=== PATIENT | female | born 1985 | race African-American/Black ===

== ENCOUNTER 2019-03-26 05:08 | Day surgery (SDC) | payer OTHER ==
[2019-03-23 08:17] VITALS: BMI 39.2
[2019-03-26] MEDS ORDERED: BUPIVACAINE HCL/PF 0.5% (5 MG/ML) 30 ML VIAL IJ ONE ×2 (07:16→09:59)
[2019-03-26] MEDS ORDERED: MIDAZOLAM HCL 2 MG/2 ML SINGLE DOSE VIAL ONE (07:34)
[2019-03-26] MEDS ORDERED: ROCURONIUM BROMIDE 50 MG/5 ML SYRINGE ONE ×2 (07:34→09:00)
[2019-03-26] MEDS ORDERED: LIDOCAINE HCL/PF 2% SDV 5ML VIAL ONE (07:34)
[2019-03-26] MEDS ORDERED: PROPOFOL 20 ML ONE ×3 (07:34→08:04)
[2019-03-26] MEDS ORDERED: fentaNYL CITRATE 250 MCG/5 ML VIAL ONE (08:28)
[2019-03-26] MEDS ORDERED: ceFAZolin SODIUM 1 GM VIAL ONE (08:30)
[2019-03-26] MEDS ORDERED: ceFAZolin 2 GRAM PREMIX BAG IVPB ONE (08:32)
[2019-03-26] MEDS ORDERED: DEXAMETHASONE SOD PHOSPHATE 4 MG/1 ML VIAL ONE (08:42)
[2019-03-26] MEDS ORDERED: GLYCOPYRROLATE 0.2 MG/1 ML VIAL ONE (09:28)
[2019-03-26] MEDS ORDERED: NEOSTIGMINE METHYLSULFATE 0.5 MG/ML - 10 ML MDV ONE (09:28)
[2019-03-26] MEDS ORDERED: oxyCODONE HCL 5 MG TABLET PO PRN (10:19)
[2019-03-26] MEDS ORDERED: ONDANSETRON 4 MG/2 ML VIAL IVPUSH PRN (10:19)
[2019-03-26] MEDS ORDERED: IBUPROFEN 800 MG/8 ML IJ IVPB PRN (10:19)
[2019-03-26] MEDS ORDERED: LACTATED RINGERS SOLUTION 1,000 ML IV SCH (10:30)
[2019-03-26 11:23] LABS: BASO % 0.6 % (0-2.0); EOS % 0.2 % (0-4.5); HEMATOCRIT 37.5 % (32.4-45.2); HEMOGLOBIN 12.8 GM/dL (10.7-15.3); LYMPH % 17.8 % (8-40); MCH 31.6 pg (25.7-33.7); MEAN CELL VOLUME 92.8 fl (80-96); MEAN PLT VOLUME 7.8 fl (7.5-11.1); MONO % 2.1 % (3.8-10.2); NEUT % 79.3 % (42.8-82.8); PLATELET COUNT 309 K/MM3 (134-434); RBC 4.04 M/mm3 (3.60-5.2); RDW 13.2 % (11.6-15.6); WHITE BLOOD COUNT 8.5 K/mm3 (4.0-10.0)
[2019-03-26 13:20] VITALS: BP 125/74; PULSE 64; TEMP 97.7
--- NOTE | 2019-03-26 14:45 | OP ---
DATE OF OPERATION: 03/26/2019 PREOPERATIVE DIAGNOSIS: Right ovarian cyst. OPERATION: Laparoscopic right ovarian cystectomy and left ovarian cystectomy. SURGEON: Akosua Barba MD ESTIMATING ENGINEER: PATEL Albert. unavailable. ANESTHESIA: General. ANESTHESIOLOGIST: Brenda Marquis MD FINDINGS: Clear 10-cm right ovarian cyst and 5-cm dermoid cyst. PROCEDURE: Patient was taken to the operating room, placed in dorsal lithotomy position. Prepped and draped in the usual sterile fashion. Time-out was performed in accordance with hospital regulation. Anderson catheter was placed into the bladder. Attention was then drawn to the umbilicus where an 8-mm umbilical incision was made. Veress needle was inserted into the cavity. Approximately 3-4 L of CO2 was insufflated in the cavity. Veress needle was then removed, and an 8-mm trocar was then inserted. Laparoscope and camera were attached. Visualization revealed a 10-cm right ovarian cyst and a left -cm dermoid cyst. Two trocars were placed on the left, 1 in the upper abdomen, and other one upper 10 cm parallel to the umbilical incision. Two trocars were then placed on the right side 10 cm apart. Trocars were inserted under direct visualization. The da Paula robot was then side docked to the patient's arm. Trocars were then inserted onto the da Paula robot. Instruments were then placed. [place] was placed on the left. Endo Chela and fenestrated bipolar was placed on the right under visualization. Fenestrated bipolar was used to grasp the right ovarian cyst, which was 10 cm. Cystoscopy was performed using grasper, and [place] was then used to remove the right ovarian cyst approximately 10 cm. Clear fluid was seen coming out of the cyst. Coagulation and cutting of the ovary was then done. The cyst was removed in 2 parts. Attention was then drawn to the left side where cystoscopy was performed using Endo scissors. Left cystoscopy was then performed. Dermoid cyst was then removed and submitted to Pathology using blunt and sharp technique. Coagulation of the left ovary was then done. Hemostasis was achieved. All instruments were then removed. Ramesh-Zully was used on the 20-mm port, and the fascia was then closed. The incisions were then closed using 4-0 Biosyn suture in subcuticular fashion. Wounds were washed and dressed. Estimated blood loss was about 150 mL. Lauren [id number]
--- NOTE | 2019-03-30 19:32 | PATH ---
Surgical Pathology Report Patient Name: DANNY WRIGHT [facility]. Rec. #: [id number] /Age/Gender: 1985 (Age: 33) / F Account: [id number] Location: AMBULATORY SURG Taken: 03/26/2019 Received: 03/26/2019 Reported: 03/30/2019 Physicians: Akosua Barba M.D. Specimen(s) Received A: RIGHT OVARIAN B: LEFT DERMOID CYST Clinical History Ovarian cyst right Final Diagnosis A. OVARIAN CYST, RIGHT, EXCISION: OVARIAN TISSUE WITH CONCURRENT STRUMA OVARII AND SEROUS CYSTADENOMA. Comment: Portions of ovarian tissue with cystic wall lined by benign cuboid serous type epithelium. Focal benign appearing thyroid tissue with colloid is seen in the cyst wall. Findings are consistent with the above diagnosis. B. LEFT DERMOID CYST, REMOVAL: MATURE CYSTIC TERATOMA. Electronically Signed Heidi Nguyen M.D. Gross Description A. Received in formalin labeled "ovarian cyst right," are 2 ruiz-pink portions of a disrupted cyst wall measuring 5.0 x 3.5 x 0.2 cm and 5.5 x 3.1 x 0.2 cm. Sectioning reveals focal mucinous material. No normal ovarian parenchyma is identified. Cable Splicer Apprentice sections are submitted in 4 cassettes. B. Received in formalin labeled "left dermoid cyst," is a 4.3 x 3.5 x 1.0 cm ruiz-pink, intact cyst. The outer surface is smooth. The cyst lumen contains abundant hair and ruiz sebaceous material. Cable Splicer Apprentice sections are submitted in 5 cassettes. /03/26/2019 saudi/03/26/2019
--- NOTE | 2019-04-02 12:36 | SURG ---
Surgery Disposal Plant Operator Note Disposal Plant Operator: Isha Nichols PA-C (Suzy) Date of Service: 03/26/19 Diagnosis: Right ovarian cyst Procedure: Laparoscopic robotic cystectomy right I was present for the entirety of the operative procedure. For further detail, please refer to operative report. Visit type - Case Type Case Type: Scheduled - Emergency Emergency Visit: No - New patient This patient is new to me today: Yes Date on this admission: 04/02/19 - Critical Care Critical Care patient: No
== END 2019-03-26 13:15 | disposition home or self-care (01) ==
LOC: JASUSAT 05:08
PROVIDERS: ATTEND Obstetrics & Gynecology
PROC: 8E0W4CZ Robotic Assisted Procedure of Trunk Region, Percutaneous Endoscopic Approach (ICD-10-PCS; 2019-03-26)
PROC: 0UB24ZZ Excision of Bilateral Ovaries, Percutaneous Endoscopic Approach (ICD-10-PCS; principal; 2019-03-26 07:30)
DX: N83.201 Unspecified ovarian cyst, right side (principal); D27.1 Benign neoplasm of left ovary
CPT/HCPCS: 58662; S2900; 36415; 85025; 86850; 86900; 86901; 88307-TC; 94760

== ENCOUNTER 2019-03-31 21:08 | Emergency (ER) | payer OTHER ==
[2019-03-31 21:17] VITALS: BP 123/66; PULSE 95; TEMP 99.8; BMI 39.2
[2019-03-31] MEDS ORDERED: DEXAMETHASONE SOD PHOSPHATE 10 MG/1 ML VIAL ONE (21:42)
[2019-03-31] MEDS ORDERED: DEXAMETHASONE LIQUID 0.5 MG/5 ML PO ONE (21:42)
--- NOTE | 2019-03-31 21:44 | PDOC ---
History of Present Illness - General Chief Complaint: Sore Throat Stated Complaint: FEVER Time Seen by Provider: 03/31/19 21:40 - History of Present Illness Initial Comments: 03/31/19 21:42 33-year-old female without comorbidities presents for evaluation of sore throat and fever x1 day Past History - Past Medical History Allergies/Adverse Reactions: Allergies Allergy/AdvReac Type Severity Reaction Status Date / Time No Known Allergies Allergy Verified 03/31/19 21:17 Home Medications: Ambulatory Orders Ergocalciferol (Vitamin D2) [Vitamin D2] 50,000 unit PO WEEKLY 03/23/19 Docusate Sodium [Colace] 100 mg PO BID 7 Days #14 capsule 03/26/19 oxyCODONE HCL [Roxicodone -] 5 mg PO Q6H PRN 5 Days #15 tablet MDD 5 03/26/19 Penicillin V Potassium [Pen Vee K -] 500 mg PO QID #40 tablet 03/31/19 Anemia: No Asthma: No Cancer: No Cardiac Disorders: No CVA: No COPD: No CHF: No Dementia: No Diabetes: No GI Disorders: No Disorders: No HTN: No Hypercholesterolemia: No Liver Disease: No Seizures: No Thyroid Disease: No - Psycho Social/Smoking Cessation Hx Smoking History: Never smoked Hx Alcohol Use: No Drug/Substance Use Hx: No Substance Use Type: None Hx Substance Use Treatment: No Review of Systems - Review of Systems Constitutional: Yes: Fever HEENTM: Yes: Throat Pain, Difficulty Swallowing *Physical Exam - Vital Signs Last Vital Signs Temp Pulse Resp BP Pulse Ox 99.8 F H 95 H 18 123/66 99 03/31/19 21:15 03/31/19 21:15 03/31/19 21:15 03/31/19 21:15 03/31/19 21:15 - Physical Exam 03/31/19 21:43 HEAD: NC/AT EYES: Conjuntiva clear Ears: Canals and TM's normal NOSE: No d/c THROAT: Moist mucous membrances, oral pharanx erythemic with exudate, uvula midline NECK: Supple without adenopathy CARDIAC: S1 S2 LUNGS: CTA Full and Equal breath sounds ABDOMEN: Soft NT ND MS: Full ROM in all joints without edema NEUROLOGIC: No gross sensory or motor deficits, NVID SKIN: Normal color and temperature no lesions or rashes Medical Decision Making - Medical Decision Making 03/31/19 21:43 We will treat based on examination and clinical history for strep pharyngitis follow-up with primary care physician Discharge - Discharge Information Problems reviewed: Yes Clinical Impression/Diagnosis: Strep pharyngitis Condition: Stable Disposition: HOME - Admission No - Additional Discharge Information Prescriptions: Penicillin V Potassium [Pen Vee K -] 500 mg PO QID #40 tablet - Follow up/Referral Referrals: Nayeli Melo MD [Primary Care Provider] - - Patient Discharge Instructions Patient Printed Discharge Instructions: Strep Throat, DI for Strep Throat Additional Instructions: Please take the antibiotics and finish the entire course as directed. Tylenol and Motrin for pain. Warm salt water gargles will help with your throat pain. Do this multiple times a day. Change her toothbrush in 48 hours. Return to the emergency room for worsening symptoms. Follow-up with your primary care physician in 2 to 3 days for further evaluation and treatment options without fail. - Post Discharge Activity
[2019-03-31] MEDS ORDERED: ACETAMINOPHEN 500 MG TABLET (FP) PO ONE (21:45)
[2019-03-31] MEDS ORDERED: ACETAMINOPHEN 500 MG TABLET (FP) ONE (21:46)
== END 2019-03-31 21:49 | disposition home or self-care (01) ==
LOC: JERFT 21:08
DX: J02.0 Streptococcal pharyngitis (principal)
CPT/HCPCS: 99281-25

== ENCOUNTER 2020-03-11 18:16 | Emergency (ER) | payer OTHER ==
[2020-03-11 18:26] VITALS: BP 128/94; PULSE 97; TEMP 98.6; BMI 38.4
[2020-03-11] MEDS ORDERED: AZITHROMYCIN 250 MG TABLET PO ONE (18:33)
[2020-03-11] MEDS ORDERED: AZITHROMYCIN 500 MG TABLET ONE (18:43)
[2020-03-11 19:16] LABS: THROAT:GRP A STREP ANTIGEN Negative (Negative)
== END 2020-03-11 19:25 | disposition home or self-care (01) ==
LOC: JER 18:16
DX: J06.9 Acute upper respiratory infection, unspecified (principal); Z11.3 Encounter for screening for infections with a predominantly sexual mode of transmission
CPT/HCPCS: 36415; 87070; 87491; 87591; 87880; 99284-25; C9803; U0003